=== PATIENT | female | born 1965 | race Caucasian/White ===

== ENCOUNTER → 2023-12-07 11:25 | Outpatient (REF) | payer MEDICARE, BC, SELFPAY | LOC: DHCBC HW 11:25 | PROVIDERS: ATTENDING PHYSICIAN Internal Medicine Cardiovascular Disease; FAMILY PHYSICIAN Family Medicine | DX: R06.09 Other forms of dyspnea (principal); I42.8 Other cardiomyopathies | CPT/HCPCS: 93306 ==

== ENCOUNTER → 2023-12-07 12:18 | Outpatient (REF) | payer MEDICARE, BC, SELFPAY | LOC: HWRAD 12:18 | PROVIDERS: ATTENDING PHYSICIAN Podiatrist Foot & Ankle Surgery; FAMILY PHYSICIAN Internal Medicine | DX: M20.61 Acquired deformities of toe(s), unspecified, right foot (principal); M20.62 Acquired deformities of toe(s), unspecified, left foot | CPT/HCPCS: 73630 ==

== ENCOUNTER → 2024-11-06 12:43 | Outpatient (REF) | payer MEDICARE, BC, SELFPAY | LOC: WDC 12:43 | PROVIDERS: ATTENDING PHYSICIAN Family Medicine | DX: Z12.31 Encounter for screening mammogram for malignant neoplasm of breast (principal) | CPT/HCPCS: 77063; 77067 ==